=== PATIENT | female | born 1960 | race Caucasian/White ===

== ENCOUNTER → 2019-01-17 | Outpatient (CLI) | payer OTHER ==
--- NOTE | 2019-01-17 10:46 | US ---
EXAMINATION TYPE: US pelvis complete transvag DATE OF EXAM: 01/17/2019 COMPARISON: NONE CLINICAL HISTORY: N95.0 Post menopausal Bleeding. Irregular periods, large body habitus TECHNIQUE: Transabdominal sonographic images of the pelvis were acquired. Transvaginal sonographic images were medically necessary to better assess the following anatomy: adnexa and endometrium Date of LMP: 12/23/2018 EXAM MEASUREMENTS: Uterus: 8.2 x 3.2 x 4.4 cm Endometrial Stripe: 0.5-0.6 cm Right Ovary: 1.4 x 1.3 x 1.3 cm Left Ovary: 1.3 x 09 x1.6 cm 1. Uterus: Anteverted nabothian cysts, heterogenous 2. Endometrium: limited visualization, 3. Right Ovary: wnl 4. Left Ovary: wnl 5. Bilateral Adnexa: wnl 6. Posterior cul-de-sac: wnl IMPRESSION: Borderline endometrial thickness of 5-6 mm for a postmenopausal female. In a patient with postmenopausal bleeding direct visualization and sampling could be considered.
== END | disposition home or self-care (01) ==
LOC: RADUSWWP 07:48
PROVIDERS: ATTEND Obstetrics & Gynecology
DX: N95.0 Postmenopausal bleeding (principal)
CPT/HCPCS: 76830; 76856

== ENCOUNTER → 2019-02-22 | Outpatient (CLI) | payer OTHER ==
--- NOTE | 2019-02-22 15:23 | BD ---
EXAMINATION TYPE: Axial Bone Density DATE OF EXAM: 02/22/2019 COMPARISON: NONE CLINICAL HISTORY: N 95.1 Height: 5 FT 6 1/5 IN Weight: 264 FRAX RISK QUESTIONS: Secondary Osteoporosis: Current Tobacco Use: YES RISK FACTORS HISTORY OF: Active: NO Postmenopausal woman: LMP 12/2018 MEDICATIONS: Additional Medications: CLARITIN Additional History: EXAM MEASUREMENTS: Bone mineral densitometry was performed using the [employer] System. Bone mineral density as measured about the Lumbar spine is: ----- L1-L4(G/cm2): 1.343 T Score Values are as follows: ----- L2: 0.8 ----- L3: 1.5 ----- L4: 2.2 ----- L1-L4: 1.4 BASELINE Bone mineral density about the R hip (g/cm2): 1.190 Bone mineral density about the L hip (g/cm2): 1.111 T Score values are as follows: -----R Neck: 1.1 -----L Neck: 0.5 -----R Total: 2.1 -----L Total: 1.9 BASELINE IMPRESSION: Normal (Values between +1 and -1 indicate normal bone mass). Consider repeating this study in 5 year s or sooner if there is some new clinical indication. NOTE: T-SCORE=SD OF THE YOUNG ADULT MEAN.
--- NOTE | 2019-02-25 11:53 | MM ---
Reason for exam: screening (asymptomatic). Last mammogram was performed 2 years and 3 months ago. History: Family history of breast cancer in mother and breast cancer in sister. Physical Findings: A clinical breast exam by your physician is recommended on an annual basis and results should be correlated with mammographic findings. MG Screening Mammo w CAD Bilateral CC and MLO view(s) were taken. Prior study comparison: November 24, 2016, mammogram, performed at [facility]. May 06, 2013, mammogram, performed at [facility]. The breast tissue is heterogeneously dense. This may lower the sensitivity of mammography. There is no discrete abnormality. No significant changes when compared with prior studies. ASSESSMENT: Negative, BI-RAD 1 RECOMMENDATION: Routine screening mammogram of both breasts in 1 year.
== END | disposition home or self-care (01) ==
LOC: RADMAMWWP 13:44
PROVIDERS: ATTEND Obstetrics & Gynecology
DX: Z12.31 Encounter for screening mammogram for malignant neoplasm of breast (principal); N95.1 Menopausal and female climacteric states
CPT/HCPCS: 77067; 77080

== ENCOUNTER 2022-03-27 10:26 | Emergency (ER) | payer OTHER ==
[2022-03-27 10:52] VITALS: RESP 18; TEMP 97.8
--- NOTE | 2022-03-27 11:48 | ED ---
General Adult HPI - General Chief complaint: Upper Respiratory Infection Stated complaint: SOB Time Seen by Provider: 03/27/22 11:16 Source: patient, RN notes reviewed Mode of arrival: ambulatory Limitations: no limitations - History of Present Illness Initial comments: Patient is a pleasant 61-year-old female presenting to the emergency room with complaints of sinus congestion, cough, body aches fatigue and occasional fevers ongoing for approximately 1 week. She also reports that approximately 3 days ago she developed some redness and crusting in her eye which her right eye is still burning at times but denies significant amount of crusting. At the same time she also developed pain in her left ear. She reports some occasional headache and dizziness as well. She states that when symptoms first started she tested herself for Covid and was negative. She has been utilizing pupb-[id number]-smrqton antihistamines and Tylenol or Motrin as needed for symptoms without significant relief. She denies any significant past medical history and does not take any medications on a regular basis. - Related Data Previous Rx's Medication Instructions Recorded Amoxicillin 875 mg PO Q12HR 10 Days #20 tablet 03/27/22 Ciprofloxacin-Dexameth [Ciprodex 4 drops LEFT EAR BID #7.5 ml 03/27/22 Otic Susp] Allergies Allergy/AdvReac Type Severity Reaction Status Date / Time No Known Allergies Allergy Verified 03/27/22 10:52 Review of Systems ROS Statement: Those systems with pertinent positive or pertinent negative responses have been documented in the HPI. ROS Other: All systems not noted in ROS Statement are negative. Past Medical History Past Medical History: No Reported History History of Any Multi-Drug Resistant Organisms: None Reported Past Surgical History: No Surgical Hx Reported Past Psychological History: No Psychological Hx Reported Smoking Status: Vaper Past Alcohol Use History: None Reported Past Drug Use History: None Reported General Exam Limitations: no limitations General appearance: alert, in no apparent distress Head exam: Present: atraumatic, normocephalic, normal inspection Eye exam: Present: normal appearance, PERRL, EOMI. Absent: scleral icterus, conjunctival injection, periorbital swelling Expanded Ear exam: Present: normal external inspection TM/Canal exam: Erythema: Left TM, Bulging: Left TM, Effusion: Left TM, Canal Tenderness: Left TM Mouth exam: Present: normal external inspection Teeth exam: Present: normal inspection Throat exam: other (Pharyngeal injection). negative: tonsillomegaly, tonsillar exudate Neck exam: Present: normal inspection, full ROM, lymphadenopathy (Shotty). Absent: tenderness Respiratory exam: Present: normal lung sounds bilaterally. Absent: respiratory distress, wheezes, rales, rhonchi, stridor Cardiovascular Exam: Present: regular rate, normal rhythm, normal heart sounds. Absent: systolic murmur, diastolic murmur, rubs, gallop, clicks GI/Abdominal exam: Present: soft, normal bowel sounds. Absent: distended, tenderness, guarding, rebound, rigid Extremities exam: Present: normal inspection. Absent: pedal edema, joint swelling Back exam: Present: normal inspection, full ROM Neurological exam: Present: alert, oriented X3, CN II-XII intact Psychiatric exam: Present: normal affect, normal mood Skin exam: Present: warm, dry, intact, normal color. Absent: rash Course Vital Signs 03/27/22 03/27/22 10:49 13:28 Temperature 97.8 F Pulse Rate 88 90 Respiratory 18 18 Rate Blood Pressure 156/75 124/78 O2 Sat by Pulse 96 100 Oximetry Medical Decision Making - Medical Decision Making 61-year-old female complaining of sinus congestion, cough, intermittent fevers, body aches along with eye discomfort and ear discomfort. Ear and eye discomfort ongoing for 3 days remainder of symptoms ongoing for 1 week. Exam does reveal left ear infection and mild right conjunctivitis without significant injection. Will obtain Cephid swab. No indication for further diagnostic imaging or laboratory studies. Having significant body aches will give morphine for pain while waiting separate swab results. CEphid negative for COVID, influenza and RSV. Given duration of symptoms will treat with antibiotic therapy. With concerns for sinus and ear infection will treat with amoxicillin along with Ciprodex. Encouraged good hydration and continued symptomatic management. Questions and concerns answered. Will discharge home in stable condition on medications as indicated above. Case discussed with Dr. Sharma. - Lab Data Lab Results 03/27/22 Range/Units 11:38 Influenza Type A (PCR) Not Detected (Not Detectd) Influenza Type B (PCR) Not Detected (Not Detectd) RSV (PCR) Not Detected (Not Detectd) SARS-CoV-2 (PCR) Not Detected (Not Detectd) Disposition Clinical Impression: Sinusitis, Left otitis media with effusion, Right conjunctivitis Disposition: HOME SELF-CARE Condition: Stable Instructions (If sedation given, give patient instructions): Sinusitis (ED), Ear Infection (ED), Earache (ED), Conjunctivitis (ED) Additional Instructions: Please complete course of antibiotics as prescribed. Please utilize [id number]-nrokpmy ibuprofen or Aleve for pain as needed. Dekd-eqi-hnxykyh antihistamine during the day of Zyrtec or Claritin daily is recommended along with Benadryl as needed at bedtime. Please follow-up with your primary care provider. Please return to the Emergency Department if symptoms worsen or any other concerns. Prescriptions: Amoxicillin 875 mg PO Q12HR 10 Days #20 tablet Ciprofloxacin-Dexameth [Ciprodex Otic Susp] 4 drops LEFT EAR BID #7.5 ml Is patient prescribed a controlled substance at d/c from ED?: No Referrals: Anupam Rodriguez MD [Primary Care Provider] - 1-2 days Time of Disposition: 13:13
[2022-03-27] MEDS ORDERED: MORPHINE SULFATE 4 MG/ML SYRINGE IM STA (13:06)
[2022-03-27 13:29] VITALS: BP 124/78; PULSE 90
== END 2022-03-27 13:42 | disposition home or self-care (01) ==
LOC: EC 10:26
DX: J32.9 Chronic sinusitis, unspecified (principal); H66.92 Otitis media, unspecified, left ear; H10.9 Unspecified conjunctivitis; F17.290 Nicotine dependence, other tobacco product, uncomplicated; Z20.822 Contact with and (suspected) exposure to COVID-19
CPT/HCPCS: 87636; 99284; 96372; J2270